=== PATIENT | female | born 1985 | race Caucasian/White ===

== ENCOUNTER → 2025-07-10 09:11 | Outpatient (CLI) | payer OTHER, SELFPAY ==
--- NOTE | 2025-07-10 09:13 | DI.US.S_ITS ---
PROCEDURE: US PELVIC COMPLETE INDICATIONS: pcos TECHNIQUE: Real-time scanning was performed of the pelvic organs, with image documentation. Additional endovaginal scanning was necessary due to incomplete visualization of the adnexal and endometrial structures by transabdominal scanning. COMPARISON: None. FINDINGS: Uterus: Uterus is anteverted and normal in size at 9.1 x 3.4 x 4.1 cm. The myometrium is homogeneous. The endometrium measures 11 mm combined thickness. Nabothian cysts are present in the cervix. Ovaries: The right ovary measures 3.3 x 2.5 x 2.8 cm with a calculated volume of 12 cc. The left ovary measures 2.7 x 1.7 x 2.1 cm. The ovaries have a normal sonographic appearance. Multiple follicular cysts are seen in the right ovary, measuring up to 1.9 centimeters. There are fewer than 12 follicles seen in each ovary. No adnexal masses are seen. Other: No pathologic free abdominal or pelvic fluid. IMPRESSION: The right ovary is mildly enlarged with multiple follicles (although less than 12 are visualized on available images), which suggests polycystic ovarian morphology. Correlate with clinical symptomatology. We strive to produce accurate, complete, and clear reports of imaging services. To assist us in improving patient care, this report was composed using standard report templates and voice recognition software. Therefore, it may contain abnormal punctuation, insertions and/or omissions. Occasional wrong-word or sound-alike substitutions may occur. Though we review the report and make efforts to correct it, we do recommend that the report be read carefully in proper context to recognize any text inaccuracies. Dictated by: Brock Peres M.D. on 07/10/2025 at 20:08 Approved by: Brock Peres M.D. on 07/10/2025 at 20:20
== END ==
PROVIDERS: Referring Provider Physician Assistant; Visit Provider Physician Assistant
DX: N92.0 Excessive and frequent menstruation with regular cycle (principal); N83.8 Other noninflammatory disorders of ovary, fallopian tube and broad ligament
CPT/HCPCS: 76830; 76856